=== PATIENT | male | born 1990 | race Native Hawaiian/Other Pacific Islander ===

== ENCOUNTER 2022-04-11 13:37 | Outpatient (CLI) | payer OTHER, SELFPAY ==
[2022-04-11 13:50] LABS: Post Vasectomy Sperm Presence None Seen (None Seen)
== END 2022-04-11 13:38 | disposition home or self-care (01) ==
LOC: CHSLAB 13:42
PROVIDERS: PCP Family Medicine; Visit Provider Family Medicine
DX: Z30.09 Encounter for other general counseling and advice on contraception (principal)
CPT/HCPCS: 88160; 89321